=== PATIENT | female | born 1990 | race Caucasian/White ===

== ENCOUNTER 2018-08-28 16:55 | Outpatient (REF) | payer BC, SELFPAY ==
--- NOTE | 2018-08-28 16:30 | PAPFT_PTH ---
PATIENT: Jaci Cobian LOC: [facility] U#:[id number] AGE/SX: 28/F ROOM: RE08/28/[address]: Nafisa Valencia : 1990 BED: DIS: 08/28/2018 SPEC #: [id number] RECD: 08/29/18 13:00 STATUS: NUBIA RETory #: [id number] SUZANNE: 08/28/18 16:[address]: Nafisa Valencia DEPT: [facility] Cytology RECD BY: Nohemy Sanchez ENTERED: 08/29/18 13:00 SP TYPE: PAPFT OTHR DR: David Lane Tissues: 1 - CX/ENDOCX FOR PAP SMEARS Procedures: PAP THIN PREP/[facility] Screening HPV DNA PROBE Comments: [id number]
== END 2018-08-28 17:15 ==
LOC: NCHCN 16:55
PROVIDERS: PCP Naturopath; Visit Provider Family Medicine
DX: Z00.00 Encounter for general adult medical examination without abnormal findings (principal); Z12.4 Encounter for screening for malignant neoplasm of cervix; Z11.51 Encounter for screening for human papillomavirus (HPV); Z01.419 Encounter for gynecological examination (general) (routine) without abnormal findings
CPT/HCPCS: 88142; 87624

== ENCOUNTER 2021-07-23 15:39 | Outpatient (REF) | payer BC, SELFPAY ==
--- NOTE | 2021-07-23 12:00 | SKI_PTH ---
[id number] AGE/SX: 30/F ROOM: RE07/23/[address]: Kristin Islas : 1990 BED: DIS: 07/23/2021 SPEC #: [id number] RECD: 07/24/21 12:33 STATUS: NUBIA RETory #: [id number] SUZANNE: 07/23/21 12:[address]: Kristin Islas DEPT: Surgical Specimen RECD BY: Nohemy Sanchez ENTERED: 07/24/21 12:35 SP TYPE: IVONE OTHR DR: David Lane Tissues: 1 - SKIN BIOPSY(SHAVE/PUNCH) Procedures: SKIN LEVEL 4 Comments: [id number]
== END 2021-07-23 15:40 | disposition home or self-care (01) ==
LOC: NCHCN 15:39
PROVIDERS: PCP Naturopath; Visit Provider Nurse Practitioner Family
DX: C44.729 Squamous cell carcinoma of skin of left lower limb, including hip (principal)
CPT/HCPCS: 88305

== ENCOUNTER 2022-08-26 12:32 | Outpatient (REF) | payer BC, SELFPAY ==
--- NOTE | 2022-08-26 08:10 | PAPFT_PTH ---
PATIENT: Jaci Cobian LOC: [facility]#:[id number] AGE/SX: 32/F ROOM: RE08/26/[address]: Kristin Islas : 1990 BED: DIS: 08/26/2022 SPEC #: [id number] RECD: 08/26/22 14:45 STATUS: NUBIA REQ #: [id number] SUZANNE: 08/26/22 08:[address]: Kristin Islas DEPT: [facility] Cytology RECD BY: Nohemy Sanchez ENTERED: 08/26/22 14:45 SP TYPE: PAPFT OTHR DR: David Lane Tissues: 1 - CX/ENDOCX FOR PAP SMEARS Procedures: PAP THIN PREP/[facility] Screening HPV DNA PROBE Comments: [id number]
== END 2022-08-26 12:33 | disposition home or self-care (01) ==
LOC: NCHCN 12:32
PROVIDERS: PCP Naturopath; Visit Provider Nurse Practitioner Family
DX: Z12.4 Encounter for screening for malignant neoplasm of cervix (principal); Z11.51 Encounter for screening for human papillomavirus (HPV)
CPT/HCPCS: 88142; 87624

== ENCOUNTER 2024-08-29 09:21 | Outpatient (REF) | payer BC, SELFPAY ==
[2024-08-29 14:25] LABS: HCT 44.1 % (36.0-46.0); HGB 14.9 g/dL (11.2-15.7); MCH 32.5 pg (27.0-33.0); MCHC 33.8 % (32.0-36.0); MCV 96 fL (80-95); MPV 10.7 fL (8.0-11.0); Platelet Count 272 10^3/uL (130-400); RBC 4.58 10^6/uL (3.93-5.22); RDW 12.2 % (11.7-14.6); RDW-SD 43.1 fL; WBC 6.68 10^3/uL (4.4-10.8)
[2024-08-29 14:37] LABS: ALT 20 U/L (14-59); AST 18 U/L (15-37); Albumin 4.1 g/dL (3.4-5.0); Alkaline Phosphatase 72 U/L (46-116); Anion Gap 8.4 mmol/L (3-11); BUN 11 mg/dL (7-18); Bilirubin, Total 1.3 mg/dL (0.2-1.0); CO2 27.6 mmol/L (21.0-32.0); CREATININE 0.7 mg/dL (0.55-1.02); Calcium 9.4 mg/dL (8.5-10.1); Calculated LDL 136 mg/dL (<100); Chloride 105 mmol/L (98-107); Cholesterol 221 mg/dL (<200); Estimated GFR 114.88 (mL/min/1.73m2); Glucose 105 mg/dL (74-106); HDL Cholesterol 72 mg/dL (>or=50); Potassium 3.9 mmol/L (3.5-5.1); Sodium 141 mmol/L (136-145); Total Protein 7.7 g/dL (6.4-8.2); Triglyceride 67 mg/dL (<150)
== END 2024-08-29 09:22 | disposition home or self-care (01) ==
LOC: NCHCN 09:21
PROVIDERS: PCP Nurse Practitioner Family; Visit Provider Nurse Practitioner Family
DX: Z00.00 Encounter for general adult medical examination without abnormal findings (principal)
CPT/HCPCS: 80053; 80061; 85027